=== PATIENT | female | born 1990 | race Caucasian/White ===

== ENCOUNTER 2020-09-17 14:32 | Outpatient (CLI) | payer OTHER | END 2020-09-17 14:33 | disposition home or self-care (01) | LOC: CSHMRI 14:32 | PROVIDERS: ATTEND Internal Medicine Hematology & Oncology | DX: C50.112 Malignant neoplasm of central portion of left female breast (principal); Z15.01 Genetic susceptibility to malignant neoplasm of breast; Z80.0 Family history of malignant neoplasm of digestive organs | CPT/HCPCS: 74183 ==

== ENCOUNTER 2021-05-04 13:49 | Emergency (ER) | payer OTHER ==
[2021-05-04] MEDS ORDERED: Dicyclomine 20 MG TAB ONE (14:34)
[2021-05-04] MEDS ORDERED: Acetaminophen 500 MG TAB ONE (14:35)
[2021-05-04] MEDS ORDERED: Ondansetron ODT 4 MG TAB ONE (15:00)
== END 2021-05-04 15:04 | disposition home or self-care (01) ==
LOC: CSHERS 13:49
DX: R11.2 Nausea with vomiting, unspecified (principal); R19.7 Diarrhea, unspecified
CPT/HCPCS: 99283; Q0162

== ENCOUNTER 2021-06-03 14:49 | Emergency (ER) | payer OTHER | END 2021-06-03 15:45 | disposition home or self-care (01) | LOC: CSHERS 14:49 | DX: L03.313 Cellulitis of chest wall (principal); Z85.3 Personal history of malignant neoplasm of breast | CPT/HCPCS: 99283 ==

== ENCOUNTER 2021-06-22 19:03 | Emergency (ER) | payer OTHER ==
[2021-06-22] MEDS ORDERED: Ibuprofen 200 MG TAB ONE (20:01)
== END 2021-06-22 22:27 | disposition home or self-care (01) ==
LOC: CSHERS 19:03
DX: M79.89 Other specified soft tissue disorders (principal); R60.9 Edema, unspecified
CPT/HCPCS: 99283